=== PATIENT | male | born 1995 | race Caucasian/White ===

== ENCOUNTER 2021-01-20 20:13 | Emergency (ER) | payer OTHER ==
[~2021-01-20] VITALS: Ht 185.4 cm; Wt 131.5 kg
[~2021-01-20 20:13] MED LIST: ACETAMINOPHEN-1 EAC1 PO; AMOXICILLIN 50500 M1 PO; APAP500 PO; BACTRIM DS TAB1 EACH PO; FLEXERIL PO; IBUPROFEN 800800 M1 PO; NAPROSYN500 MG PO; PREDNISONE 20 M20 M1 PO; PREDNISONE 20 M20 MG PO; ROBAXIN500 MG PO; VENTOLIN HFA 1818 GM INH
[2021-01-20 21:33] VITALS: BP 144/87
== END 2021-01-20 21:33 | disposition home or self-care (01) ==
LOC: M.ERS 20:13
DX: J00 Acute nasopharyngitis [common cold] (principal); Z20.822 Contact with and (suspected) exposure to COVID-19; J45.909 Unspecified asthma, uncomplicated